=== PATIENT | female | born 1980 | race Caucasian/White ===

== ENCOUNTER 2021-12-01 13:18 | Emergency (ER) | payer OTHER ==
[~2021-12-01] VITALS: Ht 167.6 cm; Wt 113.4 kg
[~2021-12-01 13:18] MED LIST: CLARITIN10 M3
[2021-12-01] MEDS ORDERED: NAPROXEN250 MG PO (14:13)
[2021-12-01] MEDS ORDERED: DOXYCYCLINE HY100 MG PO (14:14)
== END 2021-12-01 14:42 | disposition home or self-care (01) ==
LOC: ER 13:21
DX: L02.213 Cutaneous abscess of chest wall (principal)
CPT/HCPCS: 99282